=== PATIENT | female | born 1990 | race Caucasian/White ===

== ENCOUNTER 2017-01-11 01:21 | Emergency (ER) | payer MEDICAID ==
[~2017-01-11] VITALS: Ht 160 cm; Wt 56.6 kg
[2017-01-11] MEDS ORDERED: SODIUM CHLORIDE FLUSH 10ML SYR IVF ONE (02:00)
[2017-01-11] MEDS ORDERED: KETOROLAC 30 MG/1 ML ONE (02:00)
[2017-01-11] MEDS ORDERED: DIPHENHYDRAMINE 50 MG/ML, 1ML IVPush ONE (02:00)
[2017-01-11] MEDS ORDERED: PROCHLORPERAZINE 5 MG/ML, 2ML ONE (02:00)
[2017-01-11] MEDS ORDERED: DIPHENHYDRAMINE 50 MG/ML, 1ML ONE (02:00)
[2017-01-11] MEDS ORDERED: SODIUM CHLORIDE 0.9% 1,000ML IVBOLUS ONE (02:00)
[2017-01-11] MEDS ORDERED: PROCHLORPERAZINE 5 MG/ML, 2ML IVPush ONE (02:00)
[2017-01-11] MEDS ORDERED: KETOROLAC 30 MG/1 ML IVPush ONE (02:00)
[2017-01-11 03:25] VITALS: BP 102/61
== END 2017-01-11 03:49 | disposition home or self-care (01) ==
LOC: ED 03:32
DX: G44.219 Episodic tension-type headache, not intractable (principal); J00 Acute nasopharyngitis [common cold]; R11.2 Nausea with vomiting, unspecified; E86.0 Dehydration
CPT/HCPCS: 96361; 96374; 96375; 99284; J0780; J1200; J7030

== ENCOUNTER 2017-05-30 23:44 | Emergency (ER) | payer MEDICAID ==
[~2017-05-30] VITALS: Ht 160 cm; Wt 56.4 kg
[2017-05-31] MEDS ORDERED: DIPHENHYDRAMINE 50 MG/ML, 1ML ONE (00:17)
[2017-05-31] MEDS ORDERED: METOCLOPRAMIDE 5 MG/ML, 2ML ONE (00:17)
[2017-05-31] MEDS ORDERED: KETOROLAC 30 MG/1 ML ONE (00:17)
[2017-05-31] MEDS ORDERED: SODIUM CHLORIDE 0.9% 1,000ML IVBOLUS ONE (00:30)
[2017-05-31] MEDS ORDERED: KETOROLAC 30 MG/1 ML IVPush ONE (00:30)
[2017-05-31] MEDS ORDERED: SODIUM CHLORIDE FLUSH 10ML SYR IVF ONE (00:30)
[2017-05-31] MEDS ORDERED: DIPHENHYDRAMINE 50 MG/ML, 1ML IVPush ONE (00:30)
[2017-05-31] MEDS ORDERED: METOCLOPRAMIDE 5 MG/ML, 2ML IVPush ONE (00:30)
[2017-05-31 00:31] LABS: HEMATOCRIT 41.5 % (34.6-47.8); HEMOGLOBIN 14.2 g/dL (11.7-16.4); WHITE BLOOD COUNT 4.7 x10^3/uL (3.4-10)
[2017-05-31 00:42] LABS: BLOOD UREA NITROGEN 17 mg/dL (7-18)
[2017-05-31 01:51] VITALS: BP 95/64
== END 2017-05-31 01:54 | disposition home or self-care (01) ==
LOC: ED 23:59
DX: G43.909 Migraine, unspecified, not intractable, without status migrainosus (principal); R21 Rash and other nonspecific skin eruption
CPT/HCPCS: 36415; 80048; 82040; 85025; 96361; 96374; 96375; 99284; J1200; J1885; J2765; J7030

== ENCOUNTER 2017-05-31 14:00 | Emergency (ER) | payer MEDICAID ==
[~2017-05-31] VITALS: Ht 160 cm; Wt 56.8 kg
[2017-05-31] MEDS ORDERED: EPINEPHRINE 1 MG/ML, 1ML ONE (14:23)
[2017-05-31] MEDS ORDERED: FAMOTIDINE 20 MG TABLET ONE (14:23)
[2017-05-31] MEDS ORDERED: EPINEPHRINE 1 MG/ML, 1ML SQ ONE (14:30)
[2017-05-31] MEDS ORDERED: FAMOTIDINE 20 MG TABLET PO ONE (14:30)
[2017-05-31 15:35] VITALS: BP 102/48
== END 2017-05-31 15:37 | disposition home or self-care (01) ==
LOC: ED 14:13
DX: L50.9 Urticaria, unspecified (principal); F17.210 Nicotine dependence, cigarettes, uncomplicated
CPT/HCPCS: 96372; 99283; J0171; J7512

== ENCOUNTER 2019-11-05 18:32 | Emergency (ER) | payer SELFPAY ==
[~2019-11-05] VITALS: Ht 160 cm; Wt 52.3 kg
--- NOTE | 2019-11-05 18:52 | NUR ---
ambulatory to ed from home. wants to stop taking suboxone d/t health insurance reasons (clean off heroin since 2014). took prozac today to help with withdrawal sx. used to take prozac regularly 9 months ago. started having allergic rx: throat felt "hot and like I was swallowing a rock". epi pen approx 1800. came in bc still did not feel right. c/o chest tightness, anxiety. 99% RA. [address] 120s on monitor. bp stable. lungs ctab. no rash or swelling to mouth. denies itching. normally is covered in hives for allergic rx. a&ox4 gcs 15. call hilario in reach, awaiting md. as
[2019-11-05] MEDS ORDERED: LORazepam 1MG TABLET PO ONE (19:30)
[2019-11-05] MEDS ORDERED: LORazepam 1MG TABLET ONE (19:43)
[2019-11-05 19:49] VITALS: BP 134/78
--- NOTE | 2019-11-05 19:50 | NUR ---
ativan per dec. po challenge in prog. pt c/o some anxiety, no sob, talking in full sentences on phone. call hilario in reach. as
--- NOTE | 2019-11-05 20:19 | NUR ---
report to jesi webster. as
== END 2019-11-05 20:24 | disposition home or self-care (01) ==
LOC: ED 20:13
DX: T18.128A Food in esophagus causing other injury, initial encounter (principal); F41.1 Generalized anxiety disorder; Z88.1 Allergy status to other antibiotic agents; Z88.0 Allergy status to penicillin; X58.XXXA Exposure to other specified factors, initial encounter; Y93.89 Activity, other specified; Y92.89 Other specified places as the place of occurrence of the external cause; Y99.8 Other external cause status
CPT/HCPCS: 99283

== ENCOUNTER 2019-12-09 22:54 | Emergency (ER) | payer SELFPAY ==
[~2019-12-09] VITALS: Ht 160 cm; Wt 51.5 kg
[2019-12-09] MEDS ORDERED: PROP10TA16 PO (23:04)
[2019-12-09] MEDS ORDERED: ALPR0.5T10 SL (23:04)
[2019-12-09] MEDS ORDERED: DULO30CA2 PO (23:04)
--- NOTE | 2019-12-09 23:22 | NUR ---
Pt c/o redness and swelling to RLE for the last 2 days. No fevers/chills noted. Pt medicated per DEC. Pt requesting something for pain. States no relief with Tylenol and Motrin at home. ERP to be notified.
[2019-12-09] MEDS ORDERED: HYDROcodone/APAP 5/325 TABLET ONE (23:25)
--- NOTE | 2019-12-09 23:29 | NUR ---
Pt medicated per MAR for RLE pain. To be d/c home when ready.
[2019-12-09] MEDS ORDERED: HYDROcodone/APAP 5/325 TABLET PO ONE (23:30)
[2019-12-09] MEDS ORDERED: CLINDAMYCIN 300 MG CAPSULE PO ONE (23:30)
[2019-12-09 23:50] VITALS: BP 101/67
== END 2019-12-09 23:53 | disposition home or self-care (01) ==
LOC: ED 23:15
DX: L03.115 Cellulitis of right lower limb (principal); F17.200 Nicotine dependence, unspecified, uncomplicated
CPT/HCPCS: 99283

== ENCOUNTER 2020-05-23 23:05 | Emergency (ER) | payer SELFPAY ==
[~2020-05-23] VITALS: Ht 160 cm; Wt 48.0 kg
[~2020-05-23 23:05] MED LIST: ALPR0.5T10 SL; DULO30CA2 PO; PROP10TA16 PO
--- NOTE | 2020-05-24 00:58 | NUR ---
Pt amb w/ steady gait to room from lobby.
--- NOTE | 2020-05-24 01:18 | NUR ---
ERP TO BEDSIDE.
[2020-05-24 01:35] VITALS: BP 121/88
[2020-05-24 02:11] LABS: ANION GAP 8 mmol/L (5-15); CALCIUM 8.2 mg/dL (8.5-10.1); CHLORIDE 105 mmol/L (98-107); CREATININE 0.58 mg/dL (0.55-1.02)
--- NOTE | 2020-05-24 02:12 | NUR ---
PT LAYING IN BED, NO SIGNS OF ACUTE DISTRESS. PROVIDED WITH REFERENCES FOR DETOX AND SHELTERS BECAUSE PT STATES SHE DOES NOT WANT TO GO HOME AND BE AROUND HER SON BECAUSE SHE HAS RELAPSED.
[2020-05-24 02:19] LABS: BASOPHILS # (AUTO) 0.04 x10^3/uL (0-0.1); BASOPHILS % (AUTO) 1 % (0-1); EOSINOPHILS # (AUTO) 0.65 x10^3/uL (0-0.4); EOSINOPHILS % (AUTO) 15 % (1-7); LYMPHOCYTES # (AUTO) 0.91 x10^3/uL (1-3.4); LYMPHOCYTES % (AUTO) 21 % (22-44); MD NO; MEAN CORPUSCULAR HEMOGLOBIN 30.9 pg (27.0-34.8); MEAN CORPUSCULAR HGB CONC 33.7 g/dL (32.4-35.8); MEAN CORPUSCULAR VOLUME 91.5 fL (80-100); MEAN PLATELET VOLUME 7.7 fL (7.4-10.4); MONOCYTES # (AUTO) 0.38 x10^3/uL (0.2-0.8); MONOCYTES % (AUTO) 9 % (2-9); NEUTROPHILS # (AUTO) 2.31 x10^3/uL (1.8-6.8); NEUTROPHILS % (AUTO) 54 % (42-75); PLATELET COUNT 220 x10^3/uL (130-400); RED BLOOD COUNT 3.99 x10^6/uL (3.82-5.3); RED CELL DISTRIBUTION WIDTH 13.7 % (9.6-15.2)
[2020-05-25] MEDS ORDERED: DULO60CA7 PO (10:53)
== END 2020-05-24 03:01 | disposition left against medical advice (07) ==
LOC: ED 05-24 01:10
DX: L03.114 Cellulitis of left upper limb (principal); L02.414 Cutaneous abscess of left upper limb; M25.532 Pain in left wrist; K08.89 Other specified disorders of teeth and supporting structures; F11.129 Opioid abuse with intoxication, unspecified; Z72.9 Problem related to lifestyle, unspecified
CPT/HCPCS: 36415; 80048; 85025; 99283

== ENCOUNTER 2020-05-25 10:35 | Emergency (ER) | payer SELFPAY ==
[~2020-05-25] VITALS: Ht 160 cm; Wt 49.0 kg
[2020-05-25] MEDS: DOXEPIN 25 MG CAPSULE PO SCH ×2 (00:45→21:19)
[2020-05-25] MEDS ORDERED: DULO60CA7 PO (10:53)
[2020-05-25] MEDS ORDERED: LORazepam 2 MG/ML, 1ML ONE ×2 (11:22→12:18)
[2020-05-25] MEDS ORDERED: LORazepam 2 MG/ML, 1ML IVPush ONE ×2 (11:30→13:00)
[2020-05-25] MEDS ORDERED: SODIUM CHLORIDE FLUSH 10ML SYR IVF ONE (12:00)
[2020-05-25] MEDS ORDERED: SODIUM CHLORIDE 0.9% 1,000ML IVBOLUS ONE (12:00)
[2020-05-25 12:15] LABS: BASOPHILS % (AUTO) 0 % (0-1); EOSINOPHILS # (AUTO) 0.06 x10^3/uL (0-0.4); EOSINOPHILS % (AUTO) 2 % (1-7); LYMPHOCYTES # (AUTO) 0.55 x10^3/uL (1-3.4); LYMPHOCYTES % (AUTO) 17 % (22-44); MD NO; MEAN CORPUSCULAR HGB CONC 34.1 g/dL (32.4-35.8); MONOCYTES # (AUTO) 0.15 x10^3/uL (0.2-0.8); MONOCYTES % (AUTO) 4 % (2-9); NEUTROPHILS # (AUTO) 2.56 x10^3/uL (1.8-6.8); NEUTROPHILS % (AUTO) 77 % (42-75); PLATELET COUNT 286 x10^3/uL (130-400); RED BLOOD COUNT 4.35 x10^6/uL (3.82-5.3); RED CELL DISTRIBUTION WIDTH 13.6 % (9.6-15.2)
[2020-05-25 12:23] LABS: ALANINE AMINOTRANSFERASE 13 U/L (12-78); ALBUMIN 3.1 g/dL (3.4-5.0); ANION GAP 5 mmol/L (5-15); CALCIUM 8.4 mg/dL (8.5-10.1); CHLORIDE 109 mmol/L (98-107); CREATININE 0.55 mg/dL (0.55-1.02)
[2020-05-25 12:26] LABS: ALKALINE PHOSPHATASE 64 U/L (45-117); BILIRUBIN,TOTAL 0.4 mg/dL (0.2-1.0); TOTAL PROTEIN 6.9 g/dL (6.4-8.2)
[2020-05-25] MEDS ORDERED: GABAPENTIN 300 MG CAPSULE ONE (13:22)
[2020-05-25] MEDS ORDERED: GABAPENTIN 300 MG CAPSULE PO ONE (13:30)
[2020-05-25 13:31] LABS: MICROSCOPIC INDICATED
--- NOTE | 2020-05-25 14:30 | NUR ---
Break rn- pt expressed SI thoughts. division plant engineer, Sylvia Malone, DOREEN Garcia notified.
--- NOTE | 2020-05-25 15:03 | NUR ---
PATIENT ASLEEP IN [facility], CHEST RISE AND FALL NOTED. CALL LIGHT WITHIN REACH.
--- NOTE | 2020-05-25 15:29 | NUR ---
PSYCH BRYAN DEAL, IN SEEING PATIENT.
[2020-05-25] MEDS ORDERED: LORazepam 1MG TABLET PO ONE (15:30)
[2020-05-25] MEDS ORDERED: METHOCARBAMOL 500 MG TABLET PO ONE (15:30)
[2020-05-25] MEDS ORDERED: METHOCARBAMOL 500 MG TABLET ONE (16:22)
[2020-05-25] MEDS ORDERED: POTASSIUM CHLORIDE 20 MEQ TAB.ER.PRT ONE (16:22)
[2020-05-25] MEDS ORDERED: LORazepam 1MG TABLET ONE ×2 (16:23→23:51)
[2020-05-25] MEDS ORDERED: METHOCARBAMOL 500 MG TABLET PO PRN (16:30)
[2020-05-25] MEDS ORDERED: LORazepam 1MG TABLET PO PRN (16:30)
[2020-05-25] MEDS ORDERED: POTASSIUM CHLORIDE 20 MEQ TAB.ER.PRT PO ONE (16:30)
--- NOTE | 2020-05-25 16:33 | NUR ---
PT MEDICATED PER DEC. VS UPDATED AND WNL. LEGAL HOLD NOW ORDERED BY SAY/DR. PURCELL. PATIENT FEELS THAT SHE MAY GO HOME AND GET HIGH ON HEROIN FOR THE LAST TIME, INTENTIONALLY. LUNCH TRAY SERVED TO PATIENT. PT RESTING WITH NO COMPLAINTS. CALL BUTTON IN LAP.
--- NOTE | 2020-05-25 16:45 | NUR ---
PT MOVING TO ROOM 38 FOR SECURED ROOM PATIENT IS ON A LEGAL HOLD. SBAR HAND-OFF REPORT GIVEN TO LEANDRA REEVES.
--- NOTE | 2020-05-25 16:45 | NUR ---
Sjuit zhang in [facility] - 05/25/20 at 1718 by [email or web address] PT TO SECURE ROOM 38 WITH SITTER OUTSIDE DOOR. REPORT RECEIVED, CARE ASSUMED.
--- NOTE | 2020-05-25 16:45 | NUR ---
PT MOVED TO SECURE ROOM 38 WITH SITTER AT DOOR. REPORT RECEIVED, CARE ASSUMED.
--- NOTE | 2020-05-25 17:20 | NUR ---
CONTACT WITH PT. PT WITH MEAL TRAY AT BEDSIDE FROM [facility], STATES, "I'M A NIGHT EATER, I PICK AT THINGS" DISCUSSED THAT DINNER TRAY HERE AND RN WILL PUT IN REFRIGERATER FOR FOR FOR LATER. UNDERSTANDING VERBALIZED. PT REQUESTING ROOM TO BE DARKENED. NO OTHER NEEDS VERBALIZED.
--- NOTE | 2020-05-25 18:20 | NUR ---
SPOKE WITH ZOE IN LAB, STILL HAVE PTS URINE SPECIMAN FROM [facility] TODAY AND CAN RUN DOA AND HCG URINE. DOA AND HCG URINE COLLECTED IN COMPUTER.
[2020-05-25 18:30] LABS: HCG UR SG 1.019 (1.003-1.030)
[2020-05-25 18:45] LABS: AMPHETAMINE SCREEN, URINE Negative (Negative); BARBITURATE SCREEN, URINE Negative (Negative); BENZODIAZEPINE SCREEN, URINE Positive (Negative); CANNABINOID SCREEN, URINE Positive (Negative); COCAINE SCREEN, URINE Negative (Negative); METHADONE SCREEN, URINE Negative (Negative); OPIATE SCREEN, URINE Positive (Negative)
--- NOTE | 2020-05-25 19:00 | NUR ---
REPORT TO NICK Arnett RN. POC DISCUSSED
--- NOTE | 2020-05-25 20:00 | NUR ---
tp RN: packet faxed to [facility]. pt is self pay.
--- NOTE | 2020-05-25 20:04 | NUR ---
PT UP REQUESTING FLUIDS. PT GIVEN MILK AND OJ PER HER REQUEST. PT FINISHED EATING FOOD BROUGHT BY .
--- NOTE | 2020-05-25 21:26 | NUR ---
PT MEDICATED PER EMAR AND PT REQUESTING MEDICATION FOR ANXIETY. ATIVAN ALREADY GIVEN TWICE TODAY SO ATARAX GIVEN INSTEAD. PT BEING OBSERVED BY SITTER.
--- NOTE | 2020-05-25 22:00 | NUR ---
PATIENT IN BED, SITTER WITHIN VIEW OF PATIENT. NO NOTED NEEDS AT THIS TIME. WATER GIVEN PER PATIENT REQUEST.
--- NOTE | 2020-05-25 23:00 | NUR ---
PATIENT IN BED, WATER GIVEN PER REQUEST. ALLOWED AT BEDSIDE. BROUGHT BLANKET AND PILLOW, BELONGINGS PLACED IN BELONGINGS BIN.
[2020-05-25] MEDS ORDERED: ACETAMINOPHEN 500 MG TABLET ONE (23:58)
[2020-05-26] MEDS ORDERED: ACETAMINOPHEN 325 MG TABLET PO ONE
--- NOTE | 2020-05-26 | NUR ---
PATIENT RESTING IN BED, EVEN UNLABORED RESPIRATIONS, AWAITING ORDERS FOR TYLENOL. PATIENT STATED THAT SHE HAD A HEADACHE, AND MUSCLE PAIN. SITTER WITHIN VIEW OF PATIENT. WILL CONTINUE TO MONITOR.
--- NOTE | 2020-05-26 01:00 | NUR ---
PATIENT RESTING IN BED, EVEN UNLABORED RESPIRATIONS, NO NOTED NEEDS AT THIS TIME. SITTER WITHIN VIEW OF PATIENT. WILL CONTINUE TO MONITOR.
--- NOTE | 2020-05-26 02:00 | NUR ---
PATIENT RESTING IN BED, EVEN UNLABORED RESPIRATIONS, NO NOTED NEEDS AT THIS TIME. SITTER WITHIN VIEW OF PATIENT. WILL CONTINUE TO MONITOR.
--- NOTE | 2020-05-26 03:00 | NUR ---
PATIENT RESTING IN BED, NO NOTED ACUTE DISTRESS. SITTER IN VIEW OF PATIENT. WILL CONTINUE TO MONITOR
--- NOTE | 2020-05-26 04:00 | NUR ---
PATIENT RESTING IN BED, NO NOTED ACUTE DISTRESS. SITTER IN VIEW OF PATIENT. WILL CONTINUE TO MONITOR
--- NOTE | 2020-05-26 05:00 | NUR ---
PATIENT RESTING IN BED, NO NOTED ACUTE DISTRESS. SITTER IN VIEW OF PATIENT. WILL CONTINUE TO MONITOR
--- NOTE | 2020-05-26 05:37 | NUR ---
SUICIDE DIET TRAY ORDERED
--- NOTE | 2020-05-26 06:26 | NUR ---
AM VITAL SIGNS OBTAINED, PATIENT TOLERATED WELL. SITTER WITHIN VIEW OF PATIENT. NO CHANGE IN STATUS. PATIENT UPDATED ON PLAN OF CARE.
--- NOTE | 2020-05-26 07:07 | NUR ---
SBAR HAND-OFF REPORT RECEIVED FROM LEANDRA BECKMAN. ASSUMING CARE OF PATIENT. PATEINT REMAINS UNDER THE CONSTANT SUPERVISION OF SITTER AND REMAIN SAFE.
[2020-05-26] MEDS ORDERED: BUPROPION 75 MG TABLET PO SCH (08:00)
--- NOTE | 2020-05-26 08:19 | NUR ---
PUT PATIENT ON HOSPITAL BED FOR COMFORT. BREAKFAST TRAY SERVED TO PATIENT.
[2020-05-26 09:00] VITALS: BP 114/86
--- NOTE | 2020-05-26 09:37 | NUR ---
CALLED PHARMACY TO REQUEST WELLBUTRIN, THEY DIDN'T SEND IT [facility] AFTER SENDING REQUEST SLIP.
--- NOTE | 2020-05-26 10:14 | NUR ---
BREAK RN: PT RESTING ON LINDA. RAFAT. SITTER REMAINS AT BEDSIDE. ROOM REMAINS SECURE. PT MEDICATED PER DEC.
--- NOTE | 2020-05-26 10:45 | NUR ---
PT SLEEPING AND REMAINS UNDER CONSTANT SUPERVISION OF SITTER AND REMAINS SAFE.
--- NOTE | 2020-05-26 12:03 | NUR ---
BREAK RN: PT RESTING IN BED. SYLWIAN. SITTER REMAINS AT BEDSIDE. ROOM REMAINS SECURE.
--- NOTE | 2020-05-26 12:17 | NUR ---
BREAK RN: PT PROVIDED W/ SI LUNCH TRAY.
[2020-05-26] MEDS ORDERED: METHOCARBAMOL 500 MG TABLET ONE (13:02)
[2020-05-26] MEDS ORDERED: LORazepam 1MG TABLET ONE (13:03)
[2020-05-26] MEDS ORDERED: BUPRENORPHINE/NALOXONE 2-0.5MG SL ONE (15:00)
--- NOTE | 2020-05-26 15:55 | NUR ---
Patient given discharge instructions and they have confirmed that they understand the instructions. Patient ambulatory with steady gait.
== END 2020-05-26 15:56 | disposition home or self-care (01) ==
LOC: ED 11:44
DX: F11.23 Opioid dependence with withdrawal (principal); R45.851 Suicidal ideations; M79.602 Pain in left arm; M79.601 Pain in right arm; F41.9 Anxiety disorder, unspecified
CPT/HCPCS: 36415; 80053; 80307; 81001; 81025; 83605; 85025; 87086; 96361; 96374; 96376; 99285; J0572; J2060; J7030; Q0177

== ENCOUNTER 2020-06-23 10:37 | Emergency (ER) | payer SELFPAY ==
[~2020-06-23] VITALS: Ht 160 cm; Wt 44.1 kg
[~2020-06-23 10:37] MED LIST changes: +DULO60CA7 PO
[2020-06-23 11:32] LABS: BASOPHILS # (AUTO) 0.02 x10^3/uL (0-0.1); BASOPHILS % (AUTO) 0 % (0-1); EOSINOPHILS # (AUTO) 0.12 x10^3/uL (0-0.4); EOSINOPHILS % (AUTO) 1 % (1-7); LYMPHOCYTES % (AUTO) 12 % (22-44); MD NO; MEAN CORPUSCULAR HEMOGLOBIN 30.5 pg (27.0-34.8); MEAN CORPUSCULAR HGB CONC 33.1 g/dL (32.4-35.8); MEAN CORPUSCULAR VOLUME 92.4 fL (80-100); MEAN PLATELET VOLUME 6.5 fL (7.4-10.4); MONOCYTES # (AUTO) 0.58 x10^3/uL (0.2-0.8); MONOCYTES % (AUTO) 6 % (2-9); NEUTROPHILS # (AUTO) 7.57 x10^3/uL (1.8-6.8); NEUTROPHILS % (AUTO) 81 % (42-75); PLATELET COUNT 230 x10^3/uL (130-400); RED BLOOD COUNT 4.75 x10^6/uL (3.82-5.3); RED CELL DISTRIBUTION WIDTH 13.2 % (9.6-15.2)
[2020-06-23 11:44] LABS: ALBUMIN 3.2 g/dL (3.4-5.0); ANION GAP 6 mmol/L (5-15); CALCIUM 9.4 mg/dL (8.5-10.1); CHLORIDE 103 mmol/L (98-107); CREATININE 0.84 mg/dL (0.55-1.02)
[2020-06-23] MEDS ORDERED: KETOROLAC 30 MG/1 ML ONE (11:52)
[2020-06-23] MEDS ORDERED: MORPHINE SULFATE 4 MG/ML, 1ML ONE (11:52)
[2020-06-23] MEDS ORDERED: CEFTRIAXONE PMX 1GM/50ML 50 ML ONE (11:52)
[2020-06-23] MEDS ORDERED: DEXAMETHASONE 4 MG/ML, 1ML ONE (11:52)
[2020-06-23 12:00] LABS: MICROSCOPIC INDICATED
[2020-06-23] MEDS ORDERED: CEFTRIAXONE 1,000 MG in SODIUM CHLORIDE 0.9% 50 ML IVPB ONE (12:00)
[2020-06-23] MEDS ORDERED: DEXAMETHASONE 4 MG/ML, 1ML IV ONE (12:00)
[2020-06-23] MEDS ORDERED: MORPHINE SULFATE 4 MG/ML, 1ML IVPush PRN (12:00)
[2020-06-23] MEDS ORDERED: KETOROLAC 30 MG/1 ML IVPush ONE (12:00)
[2020-06-23] MEDS ORDERED: NYSTATIN 500,000 UNITS/5 ML UDC PO ONE (12:42)
[2020-06-23 12:50] VITALS: BP 110/73
[2020-06-23] MEDS ORDERED: FLUCONAZOLE 50 MG TABLET PO ONE (13:00)
[2020-06-23] MEDS ORDERED: FLUCONAZOLE 100 MG TABLET ONE (13:21)
[2020-06-23] MEDS ORDERED: LORazepam 1MG TABLET ONE (15:02)
[2020-06-23] MEDS ORDERED: LORazepam 1MG TABLET PO ONE (15:30)
== END 2020-06-23 15:17 ==
LOC: ED 11:58
DX: N30.00 Acute cystitis without hematuria (principal); J15.9 Unspecified bacterial pneumonia; R50.9 Fever, unspecified; F17.200 Nicotine dependence, unspecified, uncomplicated
CPT/HCPCS: 36415; 71045; 80048; 81001; 82040; 83605; 85025; 86308; 87040; 87081; 87086; 87806; 87880; 96365; 96375; 99284; J0696; J1100; J1885; J2270; G0475

== ENCOUNTER 2020-06-25 13:40 | Emergency (ER) | payer SELFPAY ==
[~2020-06-25] VITALS: Ht 160 cm; Wt 42.6 kg
--- NOTE | 2020-06-25 13:57 | NUR ---
CONTACT WITH PT, 30 YR OLD FEMALE HERE WITH C/O "I HAVE BEEN SICK FOR ABOUT 9 DAYS. I HAVE BEEN ON ABX THE WHOLE TIME. I WAS BROUGHT IN BY AMBULANCE 2 DAYS AGO. I FEEL LIKE I'M SWALLOWING RAZOR BLADES, EVEN WHEN I SWALLOW MY OWN SALIVIA. I JUST FEEL LIKE NOTHING IS GETTING BETTER. I HAVE A MIGRAINE (FOR 4 DAYS) I HAVE BEEN TRYING SALT WATER RINSES, WARM TEA, THE CEPACOL HAS HELPED BUT ITS STARTING TO NOT HELP"
[2020-06-25 14:03] VITALS: BP 112/70
[2020-06-25] MEDS ORDERED: NYSTATIN 500,000 UNITS/5 ML UDC PO ONE (14:30)
--- NOTE | 2020-06-25 14:52 | NUR ---
NYSTATIN ADMIN, PT INSTRUCTED ON SWISH AND SWALLOW OF NYSTATIN, VERBALIZED AND DEMONSTRATED UNDERSTANDING.
--- NOTE | 2020-06-25 15:30 | NUR ---
DR SOLORIO AT BEDSIDE TO RE-EVAL PT. PT TO BE DC'D
--- NOTE | 2020-06-25 15:42 | NUR ---
CALL TO [facility] TRI[facility], SPOKE WITH BORIS. CAN COME PICK PT UP IN 20 MIN. REVIEW OF DC INSTRUCTIONS WITH PT. NO IV TO DC.
[2020-06-25] MEDS ORDERED: ACETAMINOPHEN 325 MG TABLET ONE (15:47)
[2020-06-25] MEDS ORDERED: ACETAMINOPHEN 325 MG TABLET PO ONE (16:00)
== END 2020-06-25 16:18 | disposition home or self-care (01) ==
LOC: ED 14:09
DX: J02.8 Acute pharyngitis due to other specified organisms (principal); B37.9 Candidiasis, unspecified; B97.89 Other viral agents as the cause of diseases classified elsewhere; Z87.891 Personal history of nicotine dependence
CPT/HCPCS: 99283